=== PATIENT | female | born 1990 | race Caucasian/White ===

== ENCOUNTER 2018-05-08 15:13 | Inpatient (IN) | payer MEDICARE, OTHER ==
[2018-05-08] MEDS ORDERED: TEMAZEPAM 15 MG CAP PO PRN (17:39)
[2018-05-08] MEDS ORDERED: ACETAMINOPHEN TAB 325 MG TAB PO PRN (17:39)
[2018-05-08] MEDS ORDERED: HYDROcodone/APAP 5-325MG 1 EACH TAB PO PRN (17:39)
[2018-05-08] MEDS ORDERED: ALPRAZolam 0.25 MG TAB PO PRN (17:39)
[2018-05-08] MEDS ORDERED: NALOXONE 0.4 MG/ML 1 ML VIAL IV PRN (17:39)
[2018-05-08] MEDS ORDERED: PROMETHAZINE 25 MG TAB PO PRN (18:15)
[2018-05-08] MEDS ORDERED: NON-FORMULARY DRUG (Clindamycin Gel 1 APPLIC) TOPICAL PRN (18:15)
[2018-05-08] MEDS ORDERED: NAPROXEN 250 MG TAB PO PRN (18:19)
[2018-05-08] MEDS ORDERED: ALBUTEROL NEBULIZED 2.5 MG/3 ML INHALATION PRN (18:19)
[2018-05-08] MEDS ORDERED: LACTULOSE 200 GM/300 ML (FROM 1/2 GAL JUG) PO PRN (18:19)
[2018-05-08] MEDS ORDERED: KETOROLAC 30 MG/ML 1 ML VIAL IVP SCH (18:30)
[2018-05-08 18:38] LABS: Basophils # (A) 0.1 k/uL (0-0.2); Basophils % (A) 1 %; Eosinophils # (A) 0.4 k/uL (0-0.7); Eosinophils % (A) 3 %; HCT 34.4 % (34.0-46.0); HGB 11.1 gm/dL (11.4-16.0); Lymphocytes # (A) 1.9 k/uL (1.0-4.8); Lymphocytes % (A) 16 %; MCH 26.7 pg (25.0-35.0); MCHC 32.2 g/dL (31.0-37.0); MCV 82.9 fL (80.0-100.0); Mean Platelet Volume 6.4; Monocytes # (A) 0.6 k/uL (0-1.0); Monocytes % (A) 5 %; Neutrophils # (A) 8.2 k/uL (1.3-7.7); Neutrophils % (A) 71 %; Platelet Count 335 k/uL (150-450); RBC 4.15 m/uL (3.80-5.40); RDW 15.1 % (11.5-15.5); WBC 11.5 k/uL (3.8-10.6)
[2018-05-08 18:59] LABS: ALT 71 U/L (9-52); AST 38 U/L (14-36); Alkaline Phosphatase 132 U/L (38-126); Anion Gap 11 mmol/L; Blood Urea Nitrogen 10 mg/dL (7-17); Calcium 8.1 mg/dL (8.4-10.2); Carbon Dioxide 22 mmol/L (22-30); Chloride 107 mmol/L (98-107); Glucose 117 mg/dL (74-99); Potassium 3.6 mmol/L (3.5-5.1); Sodium 140 mmol/L (137-145); Total Bilirubin 0.9 mg/dL (0.2-1.3); Total Protein 6.3 g/dL (6.3-8.2)
[2018-05-08] MEDS: PANTOPRAZOLE 40 MG/10 ML VIAL IV SCH (18:59)
[2018-05-08] MEDS: SODIUM CHLORIDE 0.9% 1,000 ML IV SCH (19:00)
--- NOTE | 2018-05-08 19:00 | HP ---
HISTORY AND PHYSICAL CHIEF COMPLAINTS: UTI and sepsis. HISTORY OF PRESENT ILLNESS: This 27-year-old woman with past medical history of fibromyalgia, GERD, sleep apnea, history of migraines being followed by Cari Doss as well as [facility] in the outpatient setting, has presented to [facility] with complaints of fever, rigors, chills and abdominal pain. The patient's abdominal pain has been since the past several days, mainly on the left side. Initially CT scan was not done and subsequently because of increased symptoms, patient presented to hospital. The patient is evaluated for possible UTI sepsis. Initial urine culture showed ESBL positive ESBL E. coli and physician in the ER discussed the case with me and patient was directly transferred to [facility] for further evaluation and treatment. There is no history of any headache, loss of consciousness or seizures. No history of any chest pain, palpitation at this time. PAST MEDICAL HISTORY: History of fibromyalgia, GERD, sleep apnea, history of migraines, adenoidectomy. MEDICATIONS PRIOR TO ADMISSION: Include home medications are: 1. Dyazide 1 p.o. daily. 2. Phenergan 25 mg q.8 p.r.n. 3. Lyrica 300 mg b.i.d. 4. Prilosec 20 mg b.i.d. 5. Singulair 10 mg q.h.s. 7. Cleocin 1 application b.i.d. p.r.n. 8. Celexa 40 mg q.h.s. 9. Toradol 30 mg IM p.r.n. ALLERGIES: Bupropion, naltrexone, Imitrex, meperidine, FAMILY HISTORY: History of cancer, DVT, prostate and bladder cancer. SOCIAL HISTORY: History of smoking. No history of alcohol intake. REVIEW OF SYSTEMS: ENT: No diminished hearing, diminished vision. CARDIOVASCULAR: No angina, palpitations. RESPIRATORY: No cough or hemoptysis. GI: No nausea or vomiting. : No dysuria. NERVOUS: No numbness or weakness. ALLERGY/IMMUNOLOGY: No asthma or hay fever. MUSCULOSKELETAL: As mentioned earlier. HEMATOLOGY/ONCOLOGY: No history of anemia. ENDOCRINE: No history of diabetes, hypothyroidism. CONSTITUTIONAL: As mentioned earlier. DERMATOLOGY: Negative. RHEUMATOLOGY: Negative. PSYCHIATRY: As mentioned earlier. PHYSICAL EXAMINATION: The patient is alert and oriented x3. Pulse is 80, blood pressure 120/90, respirations 20, temperature normal. HEENT: Conjunctivae normal. Oral mucosa moist. NECK: No jugular venous distention. No carotid bruits. No lymph node enlargement. CARDIOVASCULAR: S1, S2 muffled. RESPIRATORY: Breath sounds diminished in the bases. No rhonchi. No crackles. ABDOMEN: Soft. Minimal tenderness in the left upper quadrant present. Otherwise, minimal loin angle tenderness also on the left side present. No guarding. No rigidity. No mass palpable. LEGS: No edema. No swelling. NERVOUS SYSTEM: Higher functions as mentioned earlier. Moves all 4 limbs. No focal motor or sensory deficits. LYMPHATIC: No lymphadenopathy in neck or axillae. SKIN: No ulcer, rash or bleeding. LABS: Awaited at this time. ASSESSMENT: 1. Urinary tract infection with sepsis with extended-spectrum beta lactamase Escherichia coli. 2. Abdominal pain with possible left pyelonephritis. 3. Fibromyalgia. 4. Gastroesophageal reflux disease. 5. Sleep apnea. 6. History of migraines, vertigo. 7. Urinary incontinence. 8. Adenoidectomy. 9. Tonsillectomy. 10.Obesity with a body mass index of 51.1. RECOMMENDATIONS AND DISCUSSION: In this 27-year-old woman who presented with multiple complex medical issues, will monitor the patient closely, continue the current medical management and symptomatic treatment. Will obtain the cultures. Broad-spectrum IV antibiotics. Resume the home medications. DVT prophylaxis. Prognosis guarded because of multiple complex medical issues. Further recommendations to follow. A copy of this dictation will be forwarded to Dr. Cari Doss, who is the primary physician. MMSANDRAL / JADENN: [id number] / ROME
[2018-05-08 19:01] LABS: Appearance,Urine Clear (Clear); Bacteria,Urine Occasional /hpf; Bilirubin,Urine Negative (Negative); Blood,Urine Trace (Negative); Color,Urine Dark Yellow; Glucose,Urine (UA) Negative (Negative); Ketones,Urine Negative (Negative); Leukocyte Esterase,Urine Moderate (Negative); Nitrite,Urine Negative (Negative); PH, Urine 6.5 (5.0-8.0); Protein,Urine 1+ (Negative); RBC,Urine 6 /hpf (0-5); Specific Gravity,Urine 1.014 (1.001-1.035); Urobilinogen,Urine <2.0 mg/dL (<2.0); WBC,Urine 30 /hpf (0-5)
[2018-05-08] MEDS: ERTAPENEM 1 GM in SODIUM CHLORIDE 0.9% 50 ML IVPB SCH (19:12)
[2018-05-08] MEDS ORDERED: IPRATROPIUM-ALBUTEROL 3 ML NEB INHALATION PRN (19:29)
[2018-05-08 20:07] VITALS: BMI 51.0
[2018-05-08] MEDS: IPRATROPIUM-ALBUTEROL 3 ML NEB INHALATION SCH (20:16)
[2018-05-08] MEDS ORDERED: CITALOPRAM HYDROBROMIDE 20 MG TAB PO SCH (21:00)
[2018-05-08] MEDS ORDERED: NON-FORMULARY DRUG (Omeprazole 20 MG) PO SCH (21:00)
[2018-05-08] MEDS ORDERED: NON-FORMULARY DRUG (Citalopram Hydrobromide [Citalopram Hbr] 40 MG) PO SCH (21:00)
[2018-05-08] MEDS: ARIPiprazole 5 MG TAB PO SCH (21:27)
[2018-05-08] MEDS: CITALOPRAM HYDROBROMIDE 20 MG TAB PO SCH (21:28)
[2018-05-08] MEDS: MELATONIN 5 MG TABLET PO SCH (21:28)
[2018-05-08] MEDS: FAMOTIDINE 20 MG TAB PO SCH (21:28)
[2018-05-08] MEDS: MECLIZINE 12.5 MG TAB PO SCH (21:28)
[2018-05-08] MEDS: NALTREXONE HCL 50 MG TAB PO SCH (21:29)
[2018-05-08] MEDS: PREGABALIN 100 MG CAP PO SCH (21:29)
[2018-05-08] MEDS: MONTELUKAST 10 MG TAB PO SCH (21:29)
[2018-05-08] MEDS: HEPARIN SODIUM,PORCINE 5,000 UNIT/ML 1 ML VIAL SQ SCH (21:30)
[2018-05-08] MEDS: MAPROTILINE PO SCH (22:36)
[2018-05-09] MEDS: SODIUM CHLORIDE 0.9% 1,000 ML IV SCH (05:31)
[2018-05-09] MEDS: PANTOPRAZOLE 40 MG/10 ML VIAL IV SCH (07:52)
[2018-05-09] MEDS: METHOCARBAMOL 500 MG TAB PO PRN (07:53)
[2018-05-09] MEDS: FAMOTIDINE 20 MG TAB PO SCH ×2 (07:54→20:52)
[2018-05-09] MEDS: PREGABALIN 100 MG CAP PO SCH ×2 (07:54→20:53)
[2018-05-09] MEDS: HEPARIN SODIUM,PORCINE 5,000 UNIT/ML 1 ML VIAL SQ SCH ×2 (07:56→20:52)
[2018-05-09] MEDS: ERTAPENEM 1 GM in SODIUM CHLORIDE 0.9% 50 ML IVPB SCH (07:58)
--- NOTE | 2018-05-09 08:13 | XR ---
EXAMINATION TYPE: XR chest 1V portable DATE OF EXAM: 05/09/2018 Comparison: None Clinical History: 27 year-old female shortness of breath, CHF Findings: The cardiomediastinal silhouette, aorta, and pulmonary vasculature are within normal limits. Hazy pe ripheral lung densities related to overlying soft tissue. No consolidation or pleural effusion. Impression: No acute cardiopulmonary process.
[2018-05-09] MEDS: IPRATROPIUM-ALBUTEROL 3 ML NEB INHALATION SCH ×4 (08:49→20:01)
[2018-05-09] MEDS ORDERED: TRIAMTERENE-HCTZ 37.5-25MG 1 EACH CAP PO SCH (09:00)
[2018-05-09] MEDS: CITALOPRAM HYDROBROMIDE 20 MG TAB PO SCH ×2 (10:21→20:52)
[2018-05-09 10:42] LABS: Basophils # (A) 0.1 k/uL (0-0.2); Basophils % (A) 1 %; Eosinophils # (A) 0.4 k/uL (0-0.7); Eosinophils % (A) 4 %; HCT 31.6 % (34.0-46.0); HGB 9.9 gm/dL (11.4-16.0); Lymphocytes # (A) 1.9 k/uL (1.0-4.8); Lymphocytes % (A) 19 %; MCH 26.3 pg (25.0-35.0); MCHC 31.3 g/dL (31.0-37.0); MCV 83.9 fL (80.0-100.0); Mean Platelet Volume 7.3; Monocytes # (A) 0.6 k/uL (0-1.0); Monocytes % (A) 6 %; Neutrophils # (A) 6.8 k/uL (1.3-7.7); Neutrophils % (A) 68 %; Platelet Count 349 k/uL (150-450); RBC 3.76 m/uL (3.80-5.40); RDW 15.2 % (11.5-15.5); WBC 9.9 k/uL (3.8-10.6)
[2018-05-09 11:00] LABS: Anion Gap 7 mmol/L; Blood Urea Nitrogen 8 mg/dL (7-17); Calcium 8.2 mg/dL (8.4-10.2); Carbon Dioxide 26 mmol/L (22-30); Chloride 106 mmol/L (98-107); Glucose 123 mg/dL (74-99); Potassium 3.4 mmol/L (3.5-5.1); Sodium 139 mmol/L (137-145)
[2018-05-09] MEDS: ONDANSETRON 4 MG/2 ML VIAL IVP PRN (14:55)
[2018-05-09] MEDS ORDERED: POTASSIUM CHLORIDE ER 20 MEQ TAB.ER PO STA (15:03)
--- NOTE | 2018-05-09 16:21 | P.CONS ---
History of Present Illness - Reason for Consult Consult date: 05/08/18 ESBL E. coli bacteremia Requesting physician: Josefa Steward - Chief Complaint Left flank pain and fever - History of Present Illness Patient is a 27 old year female who initially presented to [facility] with chief complaints of pain in her left flank area along with a fever and urinary symptoms, the patient has been sick for a few days before she presented to the hospital. Initial symptoms of boarding or frequency of urine subsequently started having pain in the flank area more of feeling sharp in nature 6-7 out of 10 and no radiation the patient has associated nausea with it but no vomiting denies having any chest pain shortness of breath or cough with the symptom the patient is was evaluated at the [facility], she has been diagnosed with urinary tract infection blood and urine culture subsequently finalized with ESBL E. coli, and the patient has been transferred to [facility] for further evaluation of the same Review of Systems Review of system Constitutional: The patient complaining of fever or rigors or chills, along with weakness. Eyes: No complaint ENT: No complaint Respiratory: Some shortness of breath Cardiovascular: No complaint Gastrointestinal: As per history of present illness Genitourinary: As per history of present illness Musculoskeletal: No complaint Integumentary: No complaint Endocrine : No complaint Psycologial : No complaint Neurological: No complaint. Past Medical History Past Medical History: Asthma, Fibromyalgia, GERD/Reflux, Seizure Disorder, Sleep Apnea/CPAP/BIPAP Additional Past Medical History / Comment(s): MIGRAINES, VERTIGO, seizure 2016 History of Any Multi-Drug Resistant Organisms: None Reported Past Surgical History: Adenoidectomy, Ear Surgery, Orthopedic Surgery, Tonsillectomy Additional Past Surgical History / Comment(s): TUBES IN EARS, LEFT EAR BLASTEOMIA REMOVED, RT SHOULDER SX, Past Anesthesia/Blood Transfusion Reactions: No Reported Reaction Past Psychological History: Anxiety, Bipolar, Depression Additional Psychological History / Comment(s): PT STATES HAS "MOOD DISORDER" Smoking Status: Never smoker Past Alcohol Use History: None Reported Past Drug Use History: Marijuana Additional Drug Use History / Comment(s): HAS MEDICAL MARIJUANA CARD, STATES HAS NOT USED IN ONE MONTH - Past Family History Father Family Medical History: Cancer, Deep Vein Thrombosis (DVT) Additional Family Medical History / Comment(s): PROSTATE, BLADDER Mother Family Medical History: Deep Vein Thrombosis (DVT) Medications and Allergies Home Medications Medication Instructions Recorded Confirmed Type Clindamycin Gel [Cleocin-T Gel] 1 applic TOPICAL BID PRN 05/16/16 05/09/18 History Maprotiline HCl 200 mg PO HS 05/16/16 05/09/18 History Montelukast [Singulair] 10 mg PO HS 05/16/16 05/09/18 History Omeprazole [PriLOSEC] 20 mg PO BID 05/16/16 05/09/18 History Pregabalin [Lyrica] 300 mg PO BID 05/16/16 05/09/18 History Promethazine [Phenergan] 25 mg PO Q8H PRN 05/16/16 05/09/18 History Triamterene-Hctz 37.5-25Mg 1 cap PO DAILY 05/16/16 05/09/18 History [Dyazide 37.5-25 Capsule] ALPRAZolam [Xanax] 0.5 mg PO DAILY PRN 05/08/18 05/09/18 History ARIPiprazole [Abilify] 5 mg PO HS 05/08/18 05/09/18 History Albuterol Inhaler [Ventolin Hfa 1 - 2 puff INHALATION RT-Q4H PRN 05/08/18 History Inhaler] Citalopram Hydrobromide [CeleXA] 20 mg PO BID 05/08/18 05/09/18 History Ketorolac [Toradol] 30 mg IM Q6H PRN 05/08/18 05/09/18 History Lactulose 10 gm PO HS PRN 05/08/18 05/09/18 History Meclizine [Antivert] 12.5 mg PO HS 05/08/18 05/09/18 History Melatonin 5 mg PO HS 05/08/18 05/09/18 History Methocarbamol [Robaxin] 500 mg PO Q6HR PRN 05/08/18 05/09/18 History Migraine Support Formula 2 cap PO BID 05/08/18 05/09/18 History Naltrexone HCl [Revia] 25 mg PO HS 05/08/18 05/09/18 History Naproxen Sodium 550 mg PO Q12H PRN 05/08/18 05/09/18 History Neuroboost 1 cap PO QAM 05/08/18 05/09/18 History Ranitidine HCl [Zantac] 150 mg PO BID 05/08/18 05/09/18 History [employer] 2 cap PO BID 05/08/18 05/09/18 History Allergies Allergy/AdvReac Type Severity Reaction Status Date / Time bupropion [From Contrave] Allergy Severe Confusion Verified 05/09/18 11:11 naltrexone [From Contrave] Allergy Severe Confusion Verified 05/09/18 11:11 sumatriptan [From Imitrex] Allergy Severe Unknown Verified 05/09/18 11:11 sumatriptan succinate Allergy Severe Unknown Verified 05/09/18 11:11 [From Imitrex] buprenorphine [From Suboxone] Allergy Intermediate Nausea & Verified 05/09/18 11 :11 Vomiting naloxone [From Suboxone] Allergy Intermediate Nausea & Verified 05/09/18 11:11 Vomiting meperidine HCl [From Demerol] AdvReac Intermediate Itching Verified 05/09/18 11: 11 Physical Exam Vitals: Vital Signs Temp Pulse Pulse Resp BP Pulse Ox 05/08/18 20:50 98.2 F 05/08/18 20:26 96 05/08/18 20:19 96 05/08/18 19:13 98.3 F 96 18 126/74 96 Intake and Output 05/08/18 05/08/18 05/09/18 14:59 22:59 06:59 Output Total 575 Balance -575 Output: Urine 575 Other: Voiding Method Toilet Weight 139.2 kg General: The patient is awake and alert, in no distress. Skin: no rashes and no masses palpable. Eye: Pupils are equal, round, there is normal conjunctiva bilaterally. Ears, nose, mouth and throat: There are moist mucous membranes and no oral lesions. Neck: The neck is supple, there is no thyromegaly. Cardiovascular: S1-S2 regular rate and rhythm. No murmur. Respiratory: Unlabored breathing clear to auscultation bilaterally Gastrointestinal: Soft, non-distended, mild tenderness left flank area no organomegaly noted. Neurological: There are no obvious motor or sensory deficits. Coordination appears grossly intact. Speech is normal. Psychiatric: Patient is awake and alert and oriented 3, appropriate mood & affect, normal judgment. Results CBC & Chem 7: 05/09/18 06:36 05/09/18 10:28 Labs: Abnormal Lab Results - Last 24 Hours (Table) 05/08/18 05/08/18 05/08/18 Range/Units 18:25 18:25 18:25 WBC 11.5 H (3.8-10.6) k/uL Hgb 11.1 L (11.4-16.0) gm/dL Neutrophils # 8.2 H (1.3-7.7) k/uL Glucose 117 H (74-99) mg/dL Plasma Lactic Acid Daniel 0.6 L (0.7-2.0) mmol/L Calcium 8.1 L (8.4-10.2) mg/dL AST 38 H (14-36) U/L ALT 71 H (9-52) U/L Alkaline Phosphatase 132 H (38-126) U/L Albumin 3.0 L (3.5-5.0) g/dL Urine Protein (Negative) Urine Blood (Negative) Ur Leukocyte Esterase (Negative) Urine RBC (0-5) /hpf Urine WBC (0-5) /hpf Urine Bacteria (None) /hpf 05/08/18 Range/Units 18:45 WBC (3.8-10.6) k/uL Hgb (11.4-16.0) gm/dL Neutrophils # (1.3-7.7) k/uL Glucose (74-99) mg/dL Plasma Lactic Acid Daniel (0.7-2.0) mmol/L Calcium (8.4-10.2) mg/dL AST (14-36) U/L ALT (9-52) U/L Alkaline Phosphatase (38-126) U/L Albumin (3.5-5.0) g/dL Urine Protein 1+ H (Negative) Urine Blood Trace H (Negative) Ur Leukocyte Esterase Moderate H (Negative) Urine RBC 6 H (0-5) /hpf Urine WBC 30 H (0-5) /hpf Urine Bacteria Occasional H (None) /hpf Assessment and Plan (1) UTI due to extended-spectrum beta lactamase (ESBL) producing Escherichia coli Current Visit: Yes Status: Acute Code(s): N39.0 - URINARY TRACT INFECTION, SITE NOT SPECIFIED; B96.29 - OTH ESCHERICHIA COLI THE CAUSE OF DISEASES CLASSD ELSWHR; Z16.12 - EXTENDED SPECTRUM BETA LACTAMASE (ESBL) RESISTANCE SNOMED Code(s): 173670274 Plan: 1- patient initially admitted to outside facility with sepsis a patient who did have a left flank pain and fever rigors and chills now with the urine as well as blood culture finalized with ESBL E. coli likely indicating dose for deep infection such as pyelonephritis and will need to rule out kidney abscess 2-we will try to obtain a CT of abdominal pelvis report from [facility] 3- blood culture has been repeated to document clearance of her bacteremia 4- Invanz 1 g IVPB daily Patient will likely need a midline for at least 2 weeks of antibiotic therapy for her underlying complicated UTI and bacteremia We will follow on her clinical condition and culture to further adjust her medication if needed Time with Patient: Greater than 30
--- NOTE | 2018-05-09 16:46 | PN ---
PROGRESS NOTE DATE OF SERVICE: 05/09/2018 This 27-year-old woman was admitted with UTI with ESBL E coli and as well as sepsis is being closely monitored. Patient also had features of right hydronephrosis. No chest pain. No palpitations. No fever. PHYSICAL EXAM: Alert, oriented x3. Pulse 100, blood pressure 140/68, respirations 16, temperature 97.4, pulse of 92 percent on room air. HEENT: Conjunctivae normal. Oral mucosa moist. Neck is no jugular venous distention. No carotid bruit. No lymph node enlargement. CARDIOVASCULAR: S1, S2. RESPIRATORY: Breath sounds diminished in the bases. No rhonchi, no crackles. ABDOMEN: Soft, mildly diffuse tenderness. LEGS: No edema. No swelling. NERVOUS SYSTEM: No focal deficits. LABS: Potassium 3.4, hemoglobin is 9.9. Cultures are pending at this time. ASSESSMENT: 1. Acute urinary tract infection with sepsis with ESBL E coli, present on admission, with failure of outpatient treatment. 2. Abdominal pain with possible left pyelonephritis. 3. Fibromyalgia. 4. Gastroesophageal reflux disease. 5. History of sleep apnea. 6. History of migraines, vertigo. 7. History of urinary incontinence. 8. History of adenoidectomy. 9. History of tonsillectomy. 10.Obesity with body mass index of 51.1. RECOMMENDATIONS AND DISCUSSION: I recommend to continue current management, continue monitoring and symptomatic treatment. Continue with antibiotics. Guarded prognosis because of multiple complex medical issues. Further recommendations to follow. Infectious Disease evaluation. Continue with treatment. MMODL / IJN: [id number] / ROME
[2018-05-09] MEDS: MAPROTILINE PO SCH (20:51)
[2018-05-09] MEDS: MECLIZINE 12.5 MG TAB PO SCH (20:52)
[2018-05-09] MEDS: MELATONIN 5 MG TABLET PO SCH (20:52)
[2018-05-09] MEDS: ARIPiprazole 5 MG TAB PO SCH (20:52)
[2018-05-09] MEDS: NALTREXONE HCL 50 MG TAB PO SCH (20:52)
[2018-05-09] MEDS: MONTELUKAST 10 MG TAB PO SCH (20:52)
--- NOTE | 2018-05-09 22:52 | PN ---
PROGRESS NOTE DATE OF SERVICE: 05/09/2018. REASON FOR FOLLOWUP: ESBL E coli UTI and bacteremia. INTERVAL HISTORY: The patient is afebrile. Her left flank pain has slightly decreased intensity. Denies having any chest pain or shortness of breath or cough. No abdominal pain. No diarrhea. EXAMINATION: Blood pressure is 121/79 with a pulse of 102, temperature 98.4. She is 94% on room air. General description is a middle aged female, lying in bed in no distress. Respiratory system: Unlabored breathing. Clear to auscultation anteriorly. Heart S1, S2. Regular rate and rhythm. ABDOMEN: Soft, no tenderness. LABS: Hemoglobin is 9.8, white count 9.9 with a BUN of 8, creatinine 0.69. DIAGNOSTIC IMPRESSION AND PLAN: Patient ESBL E coli bacteremia secondary to the urinary source. PLAN: At this time is to keep the patient on Invanz 1 g daily. He will be get a midline on Thursday to continue with the outpatient IV Invanz therapy. There was an abnormality seen on the kidneys on the CT scan and ultrasound will be done to clarify it to make sure no drain abscess though clinically no suspicion for the same. Continue supportive care. MMODL / IJN: [id number] /
[2018-05-10] MEDS: ERTAPENEM 1 GM in SODIUM CHLORIDE 0.9% 50 ML IVPB SCH (07:34)
[2018-05-10] MEDS: PANTOPRAZOLE 40 MG/10 ML VIAL IV SCH (07:34)
[2018-05-10] MEDS: HEPARIN SODIUM,PORCINE 5,000 UNIT/ML 1 ML VIAL SQ SCH ×2 (07:34→21:02)
[2018-05-10] MEDS: PREGABALIN 100 MG CAP PO SCH ×2 (07:34→20:58)
[2018-05-10] MEDS: CITALOPRAM HYDROBROMIDE 20 MG TAB PO SCH ×2 (07:35→20:56)
[2018-05-10] MEDS: FAMOTIDINE 20 MG TAB PO SCH ×2 (07:36→20:56)
[2018-05-10 07:38] LABS: Basophils # (A) 0.1 k/uL (0-0.2); Basophils % (A) 1 %; Eosinophils # (A) 0.4 k/uL (0-0.7); Eosinophils % (A) 4 %; HCT 33.6 % (34.0-46.0); HGB 10.5 gm/dL (11.4-16.0); Hypochromasia Slight; Lymphocytes # (A) 1.8 k/uL (1.0-4.8); Lymphocytes % (A) 21 %; MCH 26.7 pg (25.0-35.0); MCHC 31.4 g/dL (31.0-37.0); MCV 84.8 fL (80.0-100.0); Mean Platelet Volume 6.4; Monocytes # (A) 0.4 k/uL (0-1.0); Monocytes % (A) 5 %; Neutrophils # (A) 5.8 k/uL (1.3-7.7); Neutrophils % (A) 68 %; Platelet Count 384 k/uL (150-450); RBC 3.96 m/uL (3.80-5.40); RDW 15.6 % (11.5-15.5); WBC 8.6 k/uL (3.8-10.6)
[2018-05-10] MEDS: ONDANSETRON 4 MG/2 ML VIAL IVP PRN ×2 (07:44→20:50)
[2018-05-10 07:56] LABS: Anion Gap 8 mmol/L; Blood Urea Nitrogen 8 mg/dL (7-17); Calcium 8.6 mg/dL (8.4-10.2); Carbon Dioxide 26 mmol/L (22-30); Chloride 107 mmol/L (98-107); Glucose 117 mg/dL (74-99); Potassium 4.4 mmol/L (3.5-5.1); Sodium 141 mmol/L (137-145)
[2018-05-10] MEDS: IPRATROPIUM-ALBUTEROL 3 ML NEB INHALATION SCH ×4 (08:15→20:06)
--- NOTE | 2018-05-10 08:34 | US ---
EXAMINATION TYPE: US kidneys/renal and bladder DATE OF EXAM: 05/10/2018 COMPARISON: NONE CLINICAL HISTORY: 27-year-old female Complicated UTI /Abnormal CT ?ABSCESS. UTI TECHNIQUE: Multiple sonographic images of the kidneys and bladder are obtained. FINDINGS: EXAM MEASUREMENTS: Right Kidney: 12.6 x 4.8 x 5.8 cm Left Kidney: 14.1 x 4.9 x 6.1 cm Insurance Follow Up Rep notes: Morbidly obese pt Right Kidney: Appeared wnl; no hydronephrosis. Left Kidney: Slightly larger in size. No hydronephrosis. Lower poles of secured by bowel gas Bladder: Not fully distended, difficult to visualize Bilateral Jets seen: No IMPRESSION: No hydronephrosis.
[2018-05-10] MEDS: METHOCARBAMOL 500 MG TAB PO PRN (12:27)
[2018-05-10] MEDS ORDERED: SENNOSIDES 8.6 MG TAB PO PRN (13:42)
--- NOTE | 2018-05-10 18:17 | PN ---
PROGRESS NOTE DATE OF SERVICE: 05/10/2018 This 27 -year-old woman was admitted with ESBL E coli sepsis is being closely monitored. Patient started on Invanz. Abdominal bladder ultrasound has been done which showed no hydronephrosis. No chest pain. No palpitations. No fever. Dr. Mast is following the patient closely. The most recent cultures are negative at this time. PHYSICAL EXAM: Alert and oriented times three. Pulse is 105. Blood pressure 142/79, respiration 20, temperature 98.2, pulse ox 94% on room air. HEENT: Conjunctivae normal. Oral mucosa is moist. NECK is no jugular venous distention. No carotid bruit. No lymph node enlargement. CARDIOVASCULAR system: S1, S2 muffled. RESPIRATORY: Breath sounds diminished in the bases. No rhonchi. No crackles. ABDOMEN: Soft, nontender. No mass palpable. Legs are no edema and no swelling. NERVOUS SYSTEM: No focal deficits. LABS: WBC 8.2, hemoglobin is 10.5. ASSESSMENT: 1. Acute urinary tract infection with sepsis and ESBL E coli present on admission with failure of outpatient treatment. 2. Abdominal pain with possible left pyelonephritis. 3. Fibromyalgia. 4. Gastroesophageal reflux disease. 5. History of sleep apnea. 6. History of migraines. 7. Vertigo. 8. History of urine incontinence. 9. History of adenoidectomy. 10.History of tonsillectomy. 11.Obesity with body mass index of 51.1. RECOMMENDATIONS AND DISCUSSION: Recommend to continue current medications, management and symptomatic treatment. Continue broad-spectrum IV antibiotics and symptomatic treatment. Closely follow with Infectious Disease. Further recommendations to follow. MMODL / IJN: [id number] /
[2018-05-10] MEDS: ARIPiprazole 5 MG TAB PO SCH (20:55)
[2018-05-10] MEDS: SODIUM CHLORIDE 0.9% 1,000 ML IV SCH (20:55)
[2018-05-10] MEDS: DOCUSATE 100 MG CAP PO SCH (20:57)
[2018-05-10] MEDS: MECLIZINE 12.5 MG TAB PO SCH (20:57)
[2018-05-10] MEDS: MELATONIN 5 MG TABLET PO SCH (20:57)
[2018-05-10] MEDS: MONTELUKAST 10 MG TAB PO SCH (20:58)
[2018-05-10] MEDS: NALTREXONE HCL 50 MG TAB PO SCH (20:59)
[2018-05-10] MEDS: MAPROTILINE PO SCH (21:00)
--- NOTE | 2018-05-11 08:02 | PN ---
PROGRESS NOTE DATE OF SERVICE: 05/10/2018. REASON FOR FOLLOWUP: ESBL E coli UTI and bacteremia. INTERVAL HISTORY: The patient is afebrile. She is breathing comfortably. Denies having any chest pain, shortness of breath or cough. No abdominal pain. No nausea, vomiting, or any diarrhea. EXAMINATION: Blood pressure 142/79 with a pulse of 100. Temperature 97.7. She is 94% on room air. General description is a middle-aged female up in the room in no distress. RESPIRATORY SYSTEM: Unlabored breathing. Clear to auscultation anteriorly. HEART: S1, S2. Regular rate and rhythm. ABDOMEN: Soft, no tenderness. LABS: Hemoglobin is 10.5, white count 8.6, BUN of 8, creatinine 0.77. DIAGNOSTIC IMPRESSION AND PLAN: Patient with ESBL E coli urinary tract infection with secondary bacteremia. Blood culture has been negative so far. She will get a midline tomorrow. Continue with IV Invanz 1 g daily for another 10-12 days to finish a course of therapy. Continue supportive care. MMODL / JADENN: [id number] /
[2018-05-11 08:34] LABS: Basophils # (A) 0.1 k/uL (0-0.2); Basophils % (A) 1 %; Eosinophils # (A) 0.4 k/uL (0-0.7); Eosinophils % (A) 4 %; HCT 37.6 % (34.0-46.0); HGB 11.3 gm/dL (11.4-16.0); Hypochromasia Slight; Lymphocytes # (A) 1.9 k/uL (1.0-4.8); Lymphocytes % (A) 20 %; MCH 25.8 pg (25.0-35.0); MCHC 30.1 g/dL (31.0-37.0); MCV 85.7 fL (80.0-100.0); Mean Platelet Volume 6.1; Monocytes # (A) 0.3 k/uL (0-1.0); Monocytes % (A) 3 %; Neutrophils # (A) 6.7 k/uL (1.3-7.7); Neutrophils % (A) 70 %; Platelet Count 455 k/uL (150-450); RBC 4.39 m/uL (3.80-5.40); RDW 15.5 % (11.5-15.5); WBC 9.6 k/uL (3.8-10.6)
[2018-05-11 08:38] LABS: Anion Gap 10 mmol/L; Blood Urea Nitrogen 10 mg/dL (7-17); Calcium 8.9 mg/dL (8.4-10.2); Carbon Dioxide 25 mmol/L (22-30); Chloride 105 mmol/L (98-107); Glucose 124 mg/dL (74-99); Sodium 140 mmol/L (137-145)
[2018-05-11] MEDS: IPRATROPIUM-ALBUTEROL 3 ML NEB INHALATION SCH ×2 (08:53→12:58)
[2018-05-11] MEDS: DOCUSATE 100 MG CAP PO SCH (09:05)
[2018-05-11] MEDS: PREGABALIN 100 MG CAP PO SCH (09:05)
[2018-05-11] MEDS: HEPARIN SODIUM,PORCINE 5,000 UNIT/ML 1 ML VIAL SQ SCH (09:05)
[2018-05-11] MEDS: FAMOTIDINE 20 MG TAB PO SCH (09:05)
[2018-05-11] MEDS: ERTAPENEM 1 GM in SODIUM CHLORIDE 0.9% 50 ML IVPB SCH (09:06)
[2018-05-11] MEDS: PANTOPRAZOLE 40 MG/10 ML VIAL IV SCH (09:06)
[2018-05-11] MEDS: CITALOPRAM HYDROBROMIDE 20 MG TAB PO SCH (09:08)
[2018-05-11 09:12] VITALS: RESP 16
[2018-05-11] MEDS: METHOCARBAMOL 500 MG TAB PO PRN (10:20)
[2018-05-11 12:33] VITALS: BP 115/82; TEMP 98
[2018-05-11 13:00] VITALS: PULSE 100
--- NOTE | 2018-05-11 15:57 | PN ---
PROGRESS NOTE DATE OF SERVICE: 05/11/2018. REASON FOR FOLLOWUP: ESBL E coli bacteremia and UTI. INTERVAL HISTORY: The patient was seen on rounds this morning. The patient has been afebrile. The patient is breathing comfortably. Denies having any chest pain, shortness of breath or cough. Abdominal pain has improved. No nausea, no vomiting. No diarrhea. EXAMINATION: Blood pressure 115/82 with a pulse of 96. Temperature 98. She is 94% on room air. General description is a middle-aged female lying in bed in no distress. RESPIRATORY SYSTEM: Unlabored breathing. Clear to auscultation anteriorly. HEART: S1, S2. Regular rate and rhythm. ABDOMEN: Soft, no tenderness. LABS: White count normal 9.3. Blood culture repeat has been negative. DIAGNOSTIC IMPRESSION AND PLAN: Patient with ESBL E coli urinary tract infection and secondary bacteremia. Ultrasound of the abdomen was negative for any structural abnormality. She will finish therapy with Invanz 1 g daily for another 12 days to finish a 2 week course of therapy with close outpatient followup. Scripts were written for the patient. MMODL / IJN: [id number] /
--- NOTE | 2018-05-19 14:35 | P.DS ---
Providers Date of admission: 05/08/18 17:32 Expected date of discharge: 05/11/18 Attending physician: Josefa Aquino Consults: 05/08/18 17:41 Consult Physician Routine Consulting Provider: Emerson Mast Consult Reason/Comments: ESBL E Coli Do you want consulting provider notified?: Yes Primary care physician: Stated None Hospital Course: Final Diagnoses: -Sepsis related to acute UTI with ESBL E. coli with secondary bacteremia, present on admission, failed outpatient treatment -Abdominal pain with possible left pyelonephritis -Fibromyalgia -Gastroesophageal reflux disease Hospital course is a 27-year-old female with ESBL E. coli sepsis. Evaluated by infectious disease. Maintained on IV antibiotics Invanz. Ultrasound reported no hydronephrosis, negative for any structural abnormality. Blood cultures negative. Significant clinical improvement. Cleared by infectious disease for discharge. Patient is being discharged home in a stable condition with guarded prognosis. EXAM: GEN: Alert and oriented 3, no acute distress.CV: Regular S1-S2.LUNGS: Bilateral bases diminished.ABD: Soft, nontender, positive bowel sounds, Neuro: No focal deficits. The impression and plan of care has been dictated as directed. : I performed a history and examination of this patient, discussed the same with the dictator. I agree with the dictator's note ,documented as a scribe. Any additional findings or plans will be noted. Time taken: 35 minutes Patient Condition at Discharge: Stable Plan - Discharge Summary Discharge Rx Participant: No New Discharge Prescriptions: New Ertapenem [INVanz] 1 gm IVPB Q24H #12 bag Acetaminophen Tab [Tylenol] 650 mg PO Q6HR PRN tab PRN Reason: Mild Pain Or Fever > 100.5 Continue Promethazine [Phenergan] 25 mg PO Q8H PRN PRN Reason: Vomiting Omeprazole [PriLOSEC] 20 mg PO BID Montelukast [Singulair] 10 mg PO HS Pregabalin [Lyrica] 300 mg PO BID Maprotiline HCl 200 mg PO HS Clindamycin Gel [Clindamycin Phosphate] 1 applic TOPICAL BID PRN PRN Reason: Rash Lactulose 10 gm PO HS PRN PRN Reason: Constipation Ketorolac [Toradol] 30 mg IM Q6H PRN PRN Reason: Migraine Headache Albuterol Inhaler [Ventolin Hfa Inhaler] 1 - 2 puff INHALATION RT-Q4H PRN PRN Reason: wheeze Methocarbamol [Robaxin] 500 mg PO Q6HR PRN PRN Reason: Muscle Spasm Naltrexone HCl [Revia] 25 mg PO HS Melatonin 5 mg PO HS Meclizine [Antivert] 12.5 mg PO HS Citalopram Hydrobromide [CeleXA] 20 mg PO BID ARIPiprazole [Abilify] 5 mg PO HS ALPRAZolam [Xanax] 0.5 mg PO DAILY PRN PRN Reason: panic attack Neuroboost 1 cap PO QAM Migraine Support Formula 2 cap PO BID [employer] 2 cap PO BID Discontinued Naproxen Sodium 550 mg PO Q12H PRN PRN Reason: cramps Discharge Medication List Clindamycin Gel [Clindamycin Phosphate] 1 applic TOPICAL BID PRN 05/16/16 [ History] Maprotiline HCl 200 mg PO HS 05/16/16 [History] Montelukast [Singulair] 10 mg PO HS 05/16/16 [History] Omeprazole [PriLOSEC] 20 mg PO BID 05/16/16 [History] Pregabalin [Lyrica] 300 mg PO BID 05/16/16 [History] Promethazine [Phenergan] 25 mg PO Q8H PRN 05/16/16 [History] ALPRAZolam [Xanax] 0.5 mg PO DAILY PRN 05/08/18 [History] ARIPiprazole [Abilify] 5 mg PO HS 05/08/18 [History] Albuterol Inhaler [Ventolin Hfa Inhaler] 1 - 2 puff INHALATION RT-Q4H PRN [History] Citalopram Hydrobromide [CeleXA] 20 mg PO BID 05/08/18 [History] Ketorolac [Toradol] 30 mg IM Q6H PRN 05/08/18 [History] Lactulose 10 gm PO HS PRN 05/08/18 [History] Meclizine [Antivert] 12.5 mg PO HS 05/08/18 [History] Melatonin 5 mg PO HS 05/08/18 [History] Methocarbamol [Robaxin] 500 mg PO Q6HR PRN 05/08/18 [History] Migraine Support Formula 2 cap PO BID 05/08/18 [History] Naltrexone HCl [Revia] 25 mg PO HS 05/08/18 [History] Neuroboost 1 cap PO QAM 05/08/18 [History] [employer] 2 cap PO BID 05/08/18 [History] Acetaminophen Tab [Tylenol] 650 mg PO Q6HR PRN tab 05/11/18 [Rx] Ertapenem [INVanz] 1 gm IVPB Q24H #12 bag 05/11/18 [Rx] Follow up Appointment(s)/Referral(s): Cari Doss, SANTANA [REFERRING] - 3 Days [facility], [NON-STAFF] - [facility], [REFERRING] - Emerson Mast MD [STAFF PHYSICIAN] - 05/20/18 10:30 am Ambulatory/Diagnostic Orders: Complete Blood Count w/diff [LAB.AMB] Time Frame: 3 Days, Location: None Selected Patient Instructions/Handouts: Sepsis (GEN), How to Care for Your Midline Catheter (DC) Activity/Diet/Wound Care/Special Instructions: Good handwashing. Keep IV clean and dry, do not get it wet. Drink plenty of fluids. Call your doctor if you get a fever or chills, or if you have any other questions or concerns. You have a slip for blood work to be drawn on Thursday. You can give this to the Home health nurse and she will draw. Discharge Disposition: HOME SELF-CARE
== END 2018-05-11 15:06 | disposition home or self-care (01) | DRG 872 ==
LOC: 6PED 17:32
PROVIDERS: ADMIT Hospitalist; ATTEND Hospitalist
PROC: 05HF33Z Insertion of Infusion Device into Left Cephalic Vein, Percutaneous Approach (ICD-10-PCS; principal; 2018-05-11 13:55)
DX: A41.51 Sepsis due to Escherichia coli [E. coli] (principal); Z68.43 Body mass index [BMI] 50.0-59.9, adult; N13.6 Pyonephrosis; E66.9 Obesity, unspecified; F31.9 Bipolar disorder, unspecified; G40.909 Epilepsy, unspecified, not intractable, without status epilepticus; G47.30 Sleep apnea, unspecified; J45.909 Unspecified asthma, uncomplicated; K21.9 Gastro-esophageal reflux disease without esophagitis; M79.7 Fibromyalgia; R32 Unspecified urinary incontinence; Z16.12 Extended spectrum beta lactamase (ESBL) resistance; Z79.899 Other long term (current) drug therapy; Z80.52 Family history of malignant neoplasm of bladder; Z87.891 Personal history of nicotine dependence; Z88.6 Allergy status to analgesic agent; Z88.5 Allergy status to narcotic agent; Z88.8 Allergy status to other drugs, medicaments and biological substances; Z83.2 Family history of diseases of the blood and blood-forming organs and certain disorders involving the immune mechanism; R42 Dizziness and giddiness; F41.9 Anxiety disorder, unspecified; G43.909 Migraine, unspecified, not intractable, without status migrainosus
CPT/HCPCS: 36569; 71045; 76770; 76937; 80048; 80053; 81001; 83605; 84484; 85025; 87040; 87086; 93005; 94640; 94760

== ENCOUNTER 2018-11-10 09:45 | Day surgery (SDC) | payer MEDICARE ==
[2018-11-04 12:34] VITALS: BMI 48.2
[~2018-11-10 09:45] MED LIST: FAMOTIDINE 20 MG/2 ML VIAL IV ONE; LACTATED RINGERS 1,000 ML IV SCH
[2018-11-10] MEDS ORDERED: LIDOCAINE 1% 20 ML VIAL (10MG/ML) FOR IV START INTRADERMA ONE (11:00)
[2018-11-10 11:17] LABS: ALT 292 U/L (9-52); AST 235 U/L (14-36); Albumin 4.1 g/dL (3.5-5.0); Alkaline Phosphatase 116 U/L (38-126); Anion Gap 8 mmol/L; Blood Urea Nitrogen 17 mg/dL (7-17); Calcium 9.3 mg/dL (8.4-10.2); Carbon Dioxide 27 mmol/L (22-30); Chloride 106 mmol/L (98-107); Glucose 97 mg/dL (74-99); Potassium 3.9 mmol/L (3.5-5.1); Sodium 141 mmol/L (137-145); Total Bilirubin 0.7 mg/dL (0.2-1.3); Total Protein 7.5 g/dL (6.3-8.2)
[2018-11-10] MEDS ORDERED: LIDOCAINE 1% INJ 10MG/ML (20 ML MDV) ONE (11:36)
[2018-11-10] MEDS ORDERED: PROPOFOL 10 MG/ML 20 ML VIAL IV ONE (11:36)
[2018-11-10] MEDS ORDERED: MIDAZOLAM 2 MG/2 ML VIAL ONE (11:36)
[2018-11-10] MEDS ORDERED: OFLOXACIN 0.3% OTIC DROPS 5 ML BTL LEFT EAR ONE (11:53)
--- NOTE | 2018-11-10 12:02 | P.OP ---
Date of Procedure: 11/10/18 Preoperative Diagnosis: Left chronic otitis media Postoperative Diagnosis: Same Procedure(s) Performed: Left ventilation tubeT-tube placement under microscopy Anesthesia: SUSY Surgeon: Abraham Skelton Estimated Blood Loss (ml): 0 Pathology: none sent Condition: stable Disposition: PACU Indications for Procedure: This 28-year-old white female whose had difficulties with chronic and recurrent otitis media specimen the left. She had a T-tube in place which recently extruded and she developed a middle ear effusion again. Operative Findings: Left serous otitis media Description of Procedure: The patient was brought in the operative suite and placed in a supine position. The patient underwent induction of general anesthesia with mask inhalation and IV agents. The patient was prepped and draped in usual aseptic fashion and the Zeiss microscope was positioned over the left ear. Cerumen was cleaned from the external auditory canal and an anteroinferior myringotomy was placed in radial fashion. A 1.27 mm T-tube was placed without difficulty. Ciloxan drops were placed followed by sterile cotton ball. The patient was then allowed to emerge from anesthesia having tolerated procedure well and was transferred to the postop recovery area in satisfactory condition.
[2018-11-10 12:13] VITALS: TEMP 97.8
[2018-11-10] MEDS ORDERED: KETOROLAC 30 MG/ML 1 ML VIAL IVP ONE (12:29)
[2018-11-10 13:21] VITALS: RESP 18
[2018-11-10 13:23] VITALS: BP 130/83; PULSE 85
== END 2018-11-10 13:38 | disposition home or self-care (01) ==
LOC: OR 09:45
PROVIDERS: ATTEND Otolaryngology
DX: H66.92 Otitis media, unspecified, left ear (principal); H69.82 Other specified disorders of Eustachian tube, left ear; H90.6 Mixed conductive and sensorineural hearing loss, bilateral; K21.9 Gastro-esophageal reflux disease without esophagitis; J45.909 Unspecified asthma, uncomplicated; F32.9 Major depressive disorder, single episode, unspecified; F41.9 Anxiety disorder, unspecified; I10 Essential (primary) hypertension; Z82.3 Family history of stroke; Z80.8 Family history of malignant neoplasm of other organs or systems; Z83.3 Family history of diabetes mellitus; Z79.1 Long term (current) use of non-steroidal anti-inflammatories (NSAID); Z79.891 Long term (current) use of opiate analgesic; Z79.52 Long term (current) use of systemic steroids; Z79.899 Other long term (current) drug therapy; Z88.5 Allergy status to narcotic agent; Z88.8 Allergy status to other drugs, medicaments and biological substances
CPT/HCPCS: 81025; 80053; 69436; J2250; J2001; J1885; J2704

== ENCOUNTER → 2021-08-13 | Outpatient (CLI) | payer MEDICARE ==
--- NOTE | 2021-08-13 15:44 | CONS ---
CONSULTATION REASON FOR CONSULTATION: Sleep apnea. This is a 31-year-old female patient with a significant number of medical problems and comorbidities. The patient was diagnosed having obstructive sleep apnea more than 8 years ago. The diagnosis was established at [facility]. At that time the patient was told that she had severe disease and she was offered CPAP therapy. Recently the patient had surgery on her deviated nasal septum. She also wanted to have a re-evaluation of her sleep apnea to make sure the ongoing treatment was adequate. For that reason the patient came to me today to the sleep center. I checked her CPAP machine. The patient has a ResMed Elite which is set at a pressure of 11 cm of water. She is also using the AirFit F30i medium-size full-face mask. Based on the compliance data that was collected over the past 30 days, the patient has utilized her machine 100% of the time, and she has averaged around 9 hours of CPAP use per night. Her leak is on order of 28 L/minute and her AHI is down to 1.6. She is quite comfortable utilizing the machine. Humidity level is only at 2, and she was encountering some oral dryness. Otherwise she is waking up refreshed and alert during the day. Helen score is only 9. Her weight has been stable at 300 pounds and she has gained around 30 pounds over the past one year. Overall, over the past 10 years, the patient has gained around 150 pounds. No sleepwalking. No sleeptalking. No other parasomnias. No restlessness in the lower extremities. No morning headaches. No nocturnal heartburn. PAST MEDICAL HISTORY: 1. Morbid obesity with significant amount of weight gain over the years. 2. Obstructive sleep apnea, maintained on CPAP therapy. 3. Chronic migraines with auras and intractable headaches. 4. Bipolar disorder. 5. Depression. 6. Fibromyalgia. 7. Seizure disorders. PAST SURGICAL HISTORY: Past surgical history includes surgical correction of a deviated nasal septum, right shoulder arthroscopic surgery, left ear surgery, tonsillectomy, adenoidectomy, tubes in left ear, colonoscopy and root canal surgery. DRUG ALLERGIES: Noted in the medical records. The patient has ALLERGIES TO SUMATRIPTAN, MEPERIDINE, NALOXONE, NALTREXONE, HYDROCODONE, ACETAMINOPHEN and OXYCODONE/ACETAMINOPHEN. MEDICATION: Medication list includes: 1. Menatriptan 2.5 mg on an as-needed basis. 2. mg per week, one shot. 3. Lyrica 300 mg twice a day. 4. Clindamycin 1% topical. 5. Lisinopril 2.5 mg p.o. daily. 6. Benadryl 50 mg shot once a month. 7. Namenda 20 mg two tablets twice daily. 8. Jardiance 10 mg p.o. daily. 9. Robaxin 750 mg three times a day. 10.Lidocaine 2% mucosal solution. 11.Ammonium nitrate 12% lotion. 12.Flonase nasal spray. 13.Ciprodex as needed. 14.Peridex as needed. 15.Triamcinolone cream as needed. 16.Pepcid 40 mg p.o. daily. 17.Lipitor 20 mg p.o. daily. 18.Proctosol HC 2.5% rectal cream. 19.Zofran as needed. 20.Chantale as needed. 21.Prilosec 40 mg p.o. daily. 22.Abilify 10 mg p.o. daily. 23.Dyazide 37.5/25 one tablet a day. 24.Drisdol 50,000 units daily. 25.Singulair 10 mg p.o. daily. 26.Melatonin 10 mg p.o. daily. 27.Xanax 0.5 mg on a p.r.n. basis. 28.Antivert 12.5 mg once a day. 29.EpiPen as needed. 30.Depo-Provera every 3 months. SOCIAL HISTORY: Nonsmoker. No use of alcoholism. No history of IV drugs. FAMILY HISTORY: The patient's family history is negative for obstructive sleep apnea. The patient has no significant family history other than migraines in her mother who from complications of brain bleed. She also had hypertension and hypothyroidism. Father is alive and had prostate cancer, diabetes mellitus, depression, obesity and diagnosed with diabetes. Paternal grandfather has Alzheimer's. Paternal grandmother has gallbladder cancer and diagnosed having a stroke. Maternal grandfather had brain aneurysm and maternal grandmother had lymphoma, colon cancer. REVIEW OF SYSTEMS: Fourteen-point review of systems was done. Positive findings are mentioned in history of present illness. No major hypersomnia or sleepiness during the day. She has been adequately treated in regard to obstructive sleep apnea. No nocturnal chest pain or heartburn. PHYSICAL EXAMINATION: BP is 139/67 pulse 102, respirations 16, temperature 97.0, saturation 97% on room air. Height is 5 feet 6 inches, weight is 315, BMI 50.8. Neck size 18-1/2 inches. GENERAL APPEARANCE: Calm, comfortable. HEAD: Atraumatic, normocephalic. Neck is supple. No JVD. No goiter or neck masses. Mallampati class IV. LUNGS: Clear to auscultation. Heart sounds are regular rate and rhythm. Normal S1, S2. No S3, S4. No murmurs. ABDOMEN: Soft, obese, nontender. No direct tenderness, rebound tenderness or guarding. EXTREMITIES: No edema. No cyanosis or clubbing. NEUROLOGIC: Awake and alert. There is no focal neurological deficit. PSYCHIATRIC: Positive for anxiety and depression. IMPRESSION: 1. Obstructive sleep apnea, severe per history, and the patient has been successfully treated with CPAP at a pressure of 11 cm of water. Compliance data was checked. No major hypersomnia or sleepiness during the day. 2. Morbid obesity with interval weight gain. Despite her weight gain, her ABRAHAM treatment has been successful. Current BMI is 50.8 with a weight of 315. 3. Migraines, intractable. 4. Acid reflux. 5. Fibromyalgia. 6. Seizure disorder. 7. Depression. 8. Bipolar disorder. PLAN: 1. Continue CPAP therapy at a pressure of 11 cm of water with a C-flex of 3. No need for any further adjustments. Increase the humidity level and set it at 4. 2. Keep the patient on AirFit F30i full-face mask. 3. Encourage weight loss. 4. Optimize sleep hygiene measures. 5. Supplies will be given through [employer]. The patient's condition is stable for now. No need for any further adjustments. We will continue to follow. See me back in a year's time. MMODL / IJN: [id number] /
== END ==
LOC: SLEEP 13:43
PROVIDERS: ATTEND Internal Medicine Critical Care Medicine
DX: G47.33 Obstructive sleep apnea (adult) (pediatric) (principal); E66.01 Morbid (severe) obesity due to excess calories; G43.019 Migraine without aura, intractable, without status migrainosus; K21.9 Gastro-esophageal reflux disease without esophagitis; M79.7 Fibromyalgia; G40.909 Epilepsy, unspecified, not intractable, without status epilepticus; F31.9 Bipolar disorder, unspecified; Z68.43 Body mass index [BMI] 50.0-59.9, adult; Z99.89 Dependence on other enabling machines and devices; Z79.899 Other long term (current) drug therapy; Z88.8 Allergy status to other drugs, medicaments and biological substances; Z88.5 Allergy status to narcotic agent; Z88.6 Allergy status to analgesic agent
CPT/HCPCS: 99211

== ENCOUNTER → 2022-08-12 | Outpatient (CLI) | payer MEDICARE ==
--- NOTE | 2022-08-12 15:25 | P.PN ---
Progress Note - Text Progress Note Date: 08/12/22 A 33-year-old female patient was coming to see me for an annual checkup regarding her obstructive sleep apnea. The patient is morbidly obese and she has multiple medical problems and comorbidities. I saw her in consultation back in August 2021. Back then, she was successful and the patient was using her CPAP at a pressure of 11 cm of water and I kept the same CPAP pressure. She is also using the air fit P 10 nasal pillows. The patient continues to have headaches. The patient is having also neck pain and jaw pain. She has received injections or had regarding her headache into her jaw. She was also given a bite splint. This extended has been essentially suboptimal and the patient is seeking a second opinion at [facility]. Meanwhile, the patient is having difficulties in having a had year over her had and posterior neck and occipital area because of the soreness that's been created by various injections that she has received. She is looking for an alternative mask. She is currently using the air fit F30 i nasal mask which is a full facemask. Based on the compliancy data, the patient is delightful machine on average of 8.4 hours per night. She has used the machine more than 4 hours 100% of the time. The leak is in order of 38 L or minute and her AHI is down to 2.4. Increased leak is probably related to the fact that the patient is unable to keep her mask tight and she loses her straps allowing some leak stool card. She is losing weight. She has undergone surgery for deviated nasal septum and she may be able to use a nasal mask. Despite all this, she is waking up refreshed and alert. She has history of depression and bipolar disorder and fibromyalgia with chronic pain. No active seizure activity for now. Medication list was noted and the patient has no significant change in her medication. She is on a combination of Ozempic and Jiardiance for blood sugar control. Her psychiatric medications include Lexapro. She is also using Xanax on an as need basis. BP is 125/91 with a pulse of 94 respiration of 16 and the temperature is 98.0. Houston score is at 11 and the oxygenation saturation is 98% on room air oxygen. Gen. appearance the patient is morbidly obese and the patient is calm and comfortable, not in acute distress The patient appeared well nourished and normally developed. Vital signs as documented. Head exam is unremarkable. No scleral icterus or corneal arcus noted. Neck is without jugular venous distension, thyromegaly, or carotid bruits. The patient is a Mallampati class IV with significant crowding of posterior oropharynx. Carotid upstrokes are brisk bilaterally. Lungs are clear to auscultation and percussion. Cardiac exam reveals the PMI to be normally sized and situated. Rhythm is regular. First and second heart sounds normal. No murmurs, rubs or gallops. Abdominal exam reveals normal bowel sounds, no masses, no organomegaly and no aortic enlargement. Extremities are nonedematous and both femoral and pedal pulses are normal.Examination of the skin revealed no evidence of significant rashes, suspicious appearing nevi or other concerning lesions.Neurologically, the patient is awake and alert and the patient does not have any focal neurological deficit. Cranial nerves are essentially intact. Assessment Obstructive sleep apnea, the patient is being treated with CPAP pressure of 11 cm of water. Treatment is successful. The patient is looking for an alternative mask for the reasons mentioned above. Chronic headache and soreness in her occipital area due to pain injections therapy Obesity with interval weight loss History of chronic headaches and migraines receiving injections to her jaw and had. Possible TMJ and currently wearing a bite splint Fibromyalgia Seizure disorder Chronic bipolar disorder Chronic depression Acid reflux Hypertension Hyperlipidemia Plan Continue CPAP therapy at pressure of 11 cm of water. After a lengthy search, I decided to try this patient on airfit N30 nasal mask which does not have any fall. He is admitted. The patient occipital head. At the same time, we'll keep the same pressure setting. Continue losing weight. Sleep hygiene measures of good. The patient's medications were reviewed. No other adjustments were done. Appropriate prescription was given and refills were given. Follow-up with [facility] regarding her chronic headache and TMJ. Continue wearing the bite splint. We'll continue to follow.
== END ==
LOC: SLEEP 13:49
PROVIDERS: ATTEND Internal Medicine Critical Care Medicine
DX: Z53.9 Procedure and treatment not carried out, unspecified reason (principal)